=== PATIENT | female | born 1970 | race Hispanic/Latino ===

== ENCOUNTER 2016-04-28 19:04 | Emergency (ER) | payer SELFPAY ==
[2016-04-28] MEDS ORDERED: KETOROLAC 60 MG/2 ML VIAL IM ONE (20:48)
== END 2016-04-28 21:18 | disposition home or self-care (01) ==
LOC: ER 19:04
DX: S63.521A Sprain of radiocarpal joint of right wrist, initial encounter (principal); S60.211A Contusion of right wrist, initial encounter; S60.221A Contusion of right hand, initial encounter; G89.11 Acute pain due to trauma; W18.30XA Fall on same level, unspecified, initial encounter; Y92.019 Unspecified place in single-family (private) house as the place of occurrence of the external cause
CPT/HCPCS: 96372